=== PATIENT | male | born 1985 | race Two or more races ===

== ENCOUNTER 2024-06-30 06:11 | Emergency (ER) | payer SELFPAY ==
[~2024-06-30] VITALS: Ht 167.6 cm; Wt 83.9 kg
[2024-06-30 06:24] VITALS: O2SAT 99
[2024-06-30] MEDS ORDERED: LIDOCAINE 1%-EPI 1:100,000 20 ML VIAL ONE ×2 (06:44→07:11)
[2024-06-30] MEDS ORDERED: NEOMY/BACITRA/POLYMYXIN B OINT UD PACKET TP ONE (07:11)
[2024-06-30] MEDS: NEOMY/BACITRA/POLYMYXIN B OINT UD PACKET TP ONE (07:18)
[2024-06-30] MEDS: LIDOCAINE 1%-EPI 1:100,000 20 ML VIAL IJ ONE (07:18)
[2024-06-30 07:36] VITALS: BP 128/62; TEMP 98.6
== END 2024-06-30 07:41 | disposition home or self-care (01) ==
LOC: ER 06:17
DX: S01.81XA Laceration without foreign body of other part of head, initial encounter (principal); F12.90 Cannabis use, unspecified, uncomplicated; W22.8XXA Striking against or struck by other objects, initial encounter; Y93.67 Activity, basketball; Y92.89 Other specified places as the place of occurrence of the external cause; Y99.8 Other external cause status
CPT/HCPCS: 12011; 99282; J3490; A4606; A4663